=== PATIENT | male | born 1985 | race Caucasian/White ===

== ENCOUNTER 2016-11-29 08:37 | Emergency (ER) | payer BC ==
[2016-11-29 08:46] VITALS: BP 153/99; PULSE 111; TEMP 98.4; BMI 31.6
[2016-11-29] MEDS ORDERED: ALBUTEROL SO4 2.5/IPRATROPIUM 0.5 INH SOL 3 ML VIAL.NEB. NEB ONE (09:06)
[2016-11-29] MEDS ORDERED: ALBUTEROL SO4 0.083% IH SOL 2.5 MG/3 ML VIAL.NEB. NEB ONE (09:07)
[2016-11-29] MEDS ORDERED: ONDANSETRON 8 MG TABLET (FP) PO ONE (09:37)
[2016-11-29] MEDS ORDERED: ONDANSETRON 4 MG TABLET PO ONE (09:42)
[2016-11-29] MEDS ORDERED: KETOROLAC TROMETHAMINE 30 MG/1 ML VIAL IM ONE (10:03)
[2016-11-29] MEDS ORDERED: KETOROLAC TROMETHAMINE 30 MG/1 ML VIAL ONE (10:09)
--- NOTE | 2016-11-29 11:04 | PDOC ---
History of Present Illness - General Chief Complaint: Cold Symptoms Stated Complaint: CHEST PAIN/cough Time Seen by Provider: 11/29/16 08:56 History Source: Patient Exam Limitations: No Limitations - History of Present Illness Initial Comments: 11/29/16 10:59 CC chest pain post coughing x 2 days; started on augmentin for ilness by local MD Timing/Duration: reports: constant Severity: reports: moderate Possible Cause: Yes: illness exposure. No: no prior episodes Modifying Factors: worse with: albuterol inhaler, albuterol nebulizer Associated Symptoms: reports: fever/chills. denies: chest pain/soreness, headache Past History - Past Medical History Allergies/Adverse Reactions: Allergies Allergy/AdvReac Type Severity Reaction Status Date / Time latex Allergy Swelling Verified 11/29/16 08:42 Home Medications: Ambulatory Orders Amlodipine Besylate 10 mg PO DAILY 06/16/16 Metoprolol Succinate [Toprol XL -] 25 mg PO BID 06/16/16 Losartan 50Mg/Hctz 12.5MG [Hyzaar -] 1 tab PO DAILY 09/03/16 mg Trisilicate/Alh/Nahco3/Aa [Gaviscon 80-14.2 mg Tab Chew] 1 each PO DAILY 05/29 Anemia: No Asthma: Yes Cancer: No Cardiac Disorders: Yes (VSD) CVA: No COPD: No CHF: No Dementia: No Diabetes: No GI Disorders: Yes (HIRSCHSPRUNG'S DISEASE) Disorders: No HTN: Yes Liver Disease: No Psychiatric Problems: Yes (depression) Seizures: No Thyroid Disease: No - Surgical History Abdominal Surgery: Yes (COLOSTOMY WITH REVERSAL AT AGE 7) Appendectomy: No Cardiac Surgery: Yes (CARDIAC CATH,no stent) Cholecystectomy: No Lung Surgery: No Neurologic Surgery: No Orthopedic Surgery: No - Immunization History Td Vaccination: Yes TDAP Vaccination: No Immunization Up to Date: Yes - Psycho/Social/Smoking Cessation Hx Anxiety: No Suicidal Ideation: No Smoking Status: No Smoking History: Never smoked Have you smoked in the past 12 months: No Number of Cigarettes Smoked Daily: 0 Information on smoking cessation initiated: No Hx Alcohol Use: No Drug/Substance Use Hx: No Substance Use Type: None Hx Substance Use Treatment: No Review of Systems - Review of Systems Constitutional: Yes: Chills, Fever, Malaise HEENTM: Yes: Nose Pain, Nose Congestion Respiratory: Yes: Symptoms reported, Cough Cardiac (ROS): Yes: Symptoms Reported, Chest Pain ABD/GI: Yes: Symptoms Reported, Nausea. No: Vomiting : Yes: Symptoms Reported *Physical Exam - Vital Signs Last Vital Signs Temp Pulse Resp BP Pulse Ox 98.4 F 111 H 18 153/99 100 11/29/16 08:42 11/29/16 08:42 11/29/16 08:42 11/29/16 08:42 11/29/16 08:42 - Physical Exam General Appearance: Yes: Appropriately Dressed. No: Apparent Distress HEENT: positive: Tonsillar Erythema, Nasal Congestion. negative: TMs Normal, Pharynx Normal Neck: negative: Tender, Rigid, Supple Respiratory/Chest: positive: Lungs Clear, Normal Breath Sounds, Respiratory Distress, Accessory Muscle Use Cardiovascular: positive: Regular Rhythm, Regular Rate. negative: Murmur ED Treatment Course - RADIOLOGY Radiology Studies Ordered: Category Date Time Status CHEST PA & LAT [RAD] Stat Radiology 11/29/16 09:07 Completed - Medications Given in the ED: ED Medications Discontinued Medications Generic Name Dose Route Start Last Admin Trade Name Freq PRN Reason Stop Dose Admin Albuterol/Ipratropium 1 amp 11/29/16 09:06 11/29/16 09:09 Duoneb - NEB 11/29/16 09:07 1 amp ONCE ONE Administration Ketorolac Tromethamine 30 mg 11/29/16 10:03 11/29/16 10:10 Toradol Injection - IM 11/29/16 10:04 30 mg ONCE ONE Administration Ondansetron HCl 8 mg 11/29/16 09:37 11/29/16 09:56 Zofran - PO 11/29/16 09:38 8 mg ONCE ONE Administration Medical Decision Making - Medical Decision Making 11/29/16 11:01 EKG reviwed by ED attending; chest xray negative; feeling better post toradol and zofran; nausea gone *DC/Admit/Observation/Transfer Diagnosis at time of Disposition: Bronchitis - Discharge Dispostion Disposition: HOME Condition at time of disposition: Stable Admit: No - Patient Instructions Additional Instructions: please see dr garcia this week; rest at home; lots of fluids; continue augmentin - Post Discharge Activity Work/School Note: Back to Work
--- NOTE | 2016-12-06 12:59 | EKG ---
Test Reason : Blood Pressure : / mmHG Vent. Rate : 093 BPM Atrial Rate : 093 BPM P-R Int : 138 ms QRS Dur : 102 ms QT Int : 340 ms P-R-T Axes : 042 020 067 degrees QTc Int : 422 ms NORMAL SINUS RHYTHM NONSPECIFIC T WAVE ABNORMALITY ABNORMAL ECG WHEN COMPARED WITH ECG OF 20-OCT-2016 11:08, NO SIGNIFICANT CHANGE WAS FOUND Confirmed by JAUN LYNN MD ([id number]) on 12/06/2016 12:58:22 PM Referred By: Confirmed By:JAUN LYNN MD
== END 2016-11-29 11:09 | disposition home or self-care (01) ==
LOC: JERFT 08:37
PROC: 3E0F7GC Introduction of Other Therapeutic Substance into Respiratory Tract, Via Natural or Artificial Opening (ICD-10-PCS; principal; 2016-11-29)
PROC: 3E0233Z Introduction of Anti-inflammatory into Muscle, Percutaneous Approach (ICD-10-PCS; 2016-11-29)
DX: J40 Bronchitis, not specified as acute or chronic (principal); J45.909 Unspecified asthma, uncomplicated; Z98.61 Coronary angioplasty status
CPT/HCPCS: 71020-TC; 93005; 93010; 99281-25

== ENCOUNTER 2017-02-16 13:32 | Emergency (ER) | payer BC ==
[2017-02-16 13:43] VITALS: BMI 31.6
[2017-02-16] MEDS ORDERED: ACETAMINOPHEN 325 MG TABLET (FP) PO ONE (17:16)
--- NOTE | 2017-02-16 17:22 | PDOC ---
History of Present Illness - General Chief Complaint: Injury Stated Complaint: HEADACHE Time Seen by Provider: 02/16/17 17:11 History Source: Patient Exam Limitations: No Limitations - History of Present Illness Initial Comments: 02/16/17 17:20 31 yr male states he was at work today and a patient opened the door and hit the side of his head left side. no LOC this occurred at 12 om at work. Pt has a history of HTN Occurred: reports: this afternoon Severity: reports: mild Pain Location: reports: face (left side head ) Past History - Past Medical History Allergies/Adverse Reactions: Allergies Allergy/AdvReac Type Severity Reaction Status Date / Time latex Allergy Swelling Verified 02/16/17 13:43 Home Medications: Ambulatory Orders Amlodipine Besylate 10 mg PO DAILY 06/16/16 Metoprolol Succinate [Toprol XL -] 50 mg PO BID 06/16/16 Losartan 50Mg/Hctz 12.5MG [Hyzaar -] 1 tab PO DAILY 09/03/16 Ranitidine HCl 0 mg PO DAILY 02/16/17 Anemia: No Asthma: Yes Cancer: No Cardiac Disorders: Yes (VSD) CVA: No COPD: No CHF: No Dementia: No Diabetes: No GI Disorders: Yes (HIRSCHSPRUNG'S DISEASE) Disorders: No HTN: Yes Liver Disease: No Psychiatric Problems: Yes (depression) Seizures: No Thyroid Disease: No - Surgical History Abdominal Surgery: Yes (COLOSTOMY WITH REVERSAL AT AGE 7) Appendectomy: No Cardiac Surgery: Yes (CARDIAC CATH,no stent) Cholecystectomy: No Lung Surgery: No Neurologic Surgery: No Orthopedic Surgery: No - Immunization History Td Vaccination: Yes TDAP Vaccination: No Immunization Up to Date: Yes - Psycho/Social/Smoking Cessation Hx Anxiety: No Suicidal Ideation: No Smoking Status: No Smoking History: Never smoked Have you smoked in the past 12 months: No Number of Cigarettes Smoked Daily: 0 Hx Alcohol Use: No Drug/Substance Use Hx: No Substance Use Type: None Hx Substance Use Treatment: No Trauma Specific PMHX - Complaint Specific PMHX Arthritis: No Back Injury: No Neck Injury: No Hx Sacro Iliac Joint Dysfunction: No Review of Systems - Review of Systems Able to Perform ROS?: Yes Is the patient limited German proficient: No Constitutional: No: Symptoms Reported HEENTM: No: Symptoms Reported Respiratory: No: Symptoms reported Cardiac (ROS): No: Symptoms Reported ABD/GI: No: Symptoms Reported : No: Symptoms Reported Musculoskeletal: No: Symptoms Reported Integumentary: No: Symptoms Reported Neurological: Yes: Symptoms reported, See HPI, Headache *Physical Exam - Vital Signs Last Vital Signs Temp Pulse Resp BP Pulse Ox 98.3 F 75 20 142/92 98 02/16/17 13:40 02/16/17 13:40 02/16/17 13:40 02/16/17 13:40 02/16/17 13:40 - Physical Exam General Appearance: Yes: Nourished, Appropriately Dressed HEENT: positive: EOMI, YOLIE, TMs Normal, Pharynx Normal Neck: positive: Supple. negative: Tender, Tender lateral, Tender midline Respiratory/Chest: positive: Lungs Clear, Normal Breath Sounds, Labored Respiration. negative: Chest Tender Cardiovascular: positive: Regular Rhythm, Regular Rate Gastrointestinal/Abdominal: positive: Normal Bowel Sounds, Soft Musculoskeletal: positive: Normal Inspection. negative: Vertebral Tenderness Extremity: positive: Normal Capillary Refill, Normal Inspection, Normal Range of Motion Integumentary: positive: Normal Color, Dry, Warm, Other (tender to touch right parietal/temporal area no swelling or echymosis, no bony crepitus or stepoff). negative: Swelling, Ecchymosis, Bruising Neurologic: positive: Fully Oriented, Alert, Normal Mood/Affect, Normal Response , Motor Strength 5/5 ED Treatment Course - RADIOLOGY Radiology Studies Ordered: Category Date Time Status HEAD CT WITHOUT CONTRAST [CT] Stat CT Scan 02/16/17 17:12 Ordered Medical Decision Making - Medical Decision Making 02/16/17 17:22 cc: hit in head with a door frame opened and hit the left side of his head no LOC c/o headache dizzyness will give tylenol 650mg now and head ct 02/16/17 17:45 02/16/17 18:15 negative headct will dc home. pt stable on discharge. 02/16/17 18:16 *DC/Admit/Observation/Transfer Diagnosis at time of Disposition: Injury of head Qualifiers: Encounter type: initial encounter Qualified Code(s): S09.90XA - Unspecified injury of head, initial encounter - Discharge Dispostion Disposition: HOME Condition at time of disposition: Good - Patient Instructions Printed Discharge Instructions: DI for Closed Head Injury Additional Instructions: drink pleanty of water to stay hydrated take tylenol 650mg every 4hrs for headache as needed avoid any alcohol for the next 2 days follow with your doctor in 1-2 days for follow up visit or return to ER if you have any worsening symptoms
[2017-02-16] MEDS ORDERED: ACETAMINOPHEN 325 MG TABLET (FP) ONE (17:39)
[2017-02-16 18:47] VITALS: BP 130/88; PULSE 66; TEMP 98.6
== END 2017-02-16 18:30 | disposition home or self-care (01) ==
LOC: JER 13:32
DX: S09.90XA Unspecified injury of head, initial encounter (principal); W20.8XXA Other cause of strike by thrown, projected or falling object, initial encounter; Y93.89 Activity, other specified; Y92.9 Unspecified place or not applicable; Y99.0 Civilian activity done for income or pay; J45.909 Unspecified asthma, uncomplicated; Q43.1 Hirschsprung's disease; I10 Essential (primary) hypertension; F32.9 Major depressive disorder, single episode, unspecified
CPT/HCPCS: 70450-TC; 99281-25

== ENCOUNTER 2017-03-28 09:51 | Emergency (ER) | payer OTHER, BC ==
[2017-03-28 09:54] VITALS: BP 140/90; PULSE 76; TEMP 97.6; BMI 31.6
[2017-03-28] MEDS ORDERED: ACETAMINOPHEN 325 MG TABLET (FP) PO ONE (10:17)
[2017-03-28] MEDS ORDERED: ACETAMINOPHEN 325 MG TABLET (FP) ONE (10:22)
--- NOTE | 2017-03-28 10:38 | PDOC ---
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 Pt did not pass out states "I saw stars" has ringing in the right ear and headache. Pt states he has history of a concussion. No vomiting or nausea . Timing/Duration: reports: 1-3 hours, constant Severity: Yes: mild Associated Symptoms: reports: ringing in ears Past History - Past Medical History Allergies/Adverse Reactions: Allergies Allergy/AdvReac Type Severity Reaction Status Date / Time latex Allergy Swelling Verified 03/28/17 09:54 Home Medications: Ambulatory Orders Amlodipine Besylate 10 mg PO DAILY 06/16/16 Metoprolol Succinate [Toprol XL -] 50 mg PO BID 06/16/16 Losartan 50Mg/Hctz 12.5MG [Hyzaar -] 1 tab PO DAILY 09/03/16 Ranitidine HCl 0 mg PO DAILY 02/16/17 Anemia: No Asthma: Yes Cancer: No Cardiac Disorders: Yes (VSD) CVA: No COPD: No CHF: No Dementia: No Diabetes: No GI Disorders: Yes (HIRSCHSPRUNG'S DISEASE) Disorders: No HTN: Yes Liver Disease: No Psychiatric Problems: Yes (depression) Seizures: No Thyroid Disease: No - Surgical History Abdominal Surgery: Yes (COLOSTOMY WITH REVERSAL AT AGE 7) Appendectomy: No Cardiac Surgery: Yes (CARDIAC CATH,no stent) Cholecystectomy: No Lung Surgery: No Neurologic Surgery: No Orthopedic Surgery: No - Immunization History Td Vaccination: Yes TDAP Vaccination: No Immunization Up to Date: Yes - Psycho/Social/Smoking Cessation Hx Anxiety: No Suicidal Ideation: No Smoking Status: No Smoking History: Never smoked Have you smoked in the past 12 months: No Number of Cigarettes Smoked Daily: 0 Information on smoking cessation initiated: No Hx Alcohol Use: No Drug/Substance Use Hx: No Substance Use Type: None Hx Substance Use Treatment: No Neuro Specific PMHX - Complaint Specific PMHX Glaucoma: No Herniated Disk: No Laminectomy: No Migraine: No Multiple Sclerosis: No Neuropathy: No TIA: No Other Neuro History: concussion Review of Systems - Review of Systems Able to Perform ROS?: Yes Is the patient limited Yakut proficient: No Constitutional: No: Symptoms Reported HEENTM: No: Symptoms Reported Respiratory: No: Symptoms reported Cardiac (ROS): No: Symptoms Reported ABD/GI: No: Symptoms Reported : No: Symptoms Reported Musculoskeletal: No: Symptoms Reported Integumentary: No: Symptoms Reported Neurological: Yes: Symptoms reported, See HPI *Physical Exam - Vital Signs Last Vital Signs Temp Pulse Resp BP Pulse Ox 97.6 F 76 17 140/90 99 03/28/17 09:52 03/28/17 09:52 03/28/17 09:52 03/28/17 09:52 03/28/17 09:52 - Physical Exam General Appearance: Yes: Nourished, Appropriately Dressed HEENT: positive: EOMI, YOLIE, Normal ENT Inspection, TMs Normal, Pharynx Normal Neck: positive: Supple. negative: Tender, Tender lateral, Tender midline Respiratory/Chest: positive: Lungs Clear, Normal Breath Sounds Cardiovascular: positive: Regular Rhythm, Regular Rate Musculoskeletal: positive: Normal Inspection Extremity: positive: Normal Capillary Refill, Normal Inspection, Normal Range of Motion Integumentary: positive: Normal Color, Dry, Warm Neurologic: positive: Fully Oriented, Alert, Normal Mood/Affect, Normal Response , Motor Strength / ED Treatment Course - RADIOLOGY Radiology Studies Ordered: Category Date Time Status HEAD CT WITHOUT CONTRAST [CT] Stat CT Scan 03/28/17 10:18 Taken - Medications Given in the ED: ED Medications Discontinued Medications Generic Name Dose Route Start Last Admin Trade Name Stevenq PRN Reason Stop Dose Admin Acetaminophen 650 mg 03/28/17 10:17 03/28/17 10:23 Tylenol - PO 03/28/17 10:18 650 mg ONCE ONE Administration Medical Decision Making - Medical Decision Making 03/28/17 10:40 cc: headache after minor head trauma no LOC no dizzyness c/o headache and ringing in ear will give tylenol and get head ct *DC/Admit/Observation/Transfer Diagnosis at time of Disposition: Headache, post-traumatic, acute Qualifiers: Intractability: intractable Qualified Code(s): G44.311 - Acute post-traumatic headache, intractable - Discharge Dispostion Disposition: HOME Condition at time of disposition: Good - Referrals Referrals: Norbert Espinal MD [Primary Care Provider] - - Patient Instructions Additional Instructions: drink pleanty of water to stay hydrated take tylenol 650mg every 4-6hrs for headache or pain as needed no texting, reading or watching TV if headaches continue follow with the neurologist Dr. Brady for follow up if headaches continue or worsen - Post Discharge Activity Work/School Note: Back to Work
== END 2017-03-28 11:01 | disposition home or self-care (01) ==
LOC: JERFT 09:51
DX: G44.311 Acute post-traumatic headache, intractable (principal); W21.09XA Struck by other hit or thrown ball, initial encounter; Y93.89 Activity, other specified; Y92.218 Other school as the place of occurrence of the external cause; Y99.0 Civilian activity done for income or pay; I25.10 Atherosclerotic heart disease of native coronary artery without angina pectoris; Z98.61 Coronary angioplasty status; I10 Essential (primary) hypertension; F32.9 Major depressive disorder, single episode, unspecified; Q43.1 Hirschsprung's disease
CPT/HCPCS: 70450-TC; 99281-25

== ENCOUNTER 2017-06-01 12:05 | Emergency (ER) | payer BC, OTHER ==
[2017-06-01 12:09] VITALS: BP 166/99; PULSE 116; TEMP 98.3; BMI 33.3
[2017-06-01] MEDS ORDERED: LIDOCAINE HCL 2% JELLY (5 ML/TUBE) ONE (12:31)
[2017-06-01] MEDS ORDERED: SODIUM CHLORIDE 1,000 ML IV ONE ×2 (13:10→14:55)
--- NOTE | 2017-06-01 13:10 | PDOC ---
History of Present Illness - General Chief Complaint: Urinary Problem Stated Complaint: URINE RETENTION Time Seen by Provider: 06/01/17 12:51 History Source: Patient Exam Limitations: No Limitations - History of Present Illness Initial Comments: 06/01/17 13:10 06/01/17 13:11 31yM hx of htn recently diagnosed UTI by PMD presents with urinary retention. Pt states he was dx by dr teddy perez on fri. was started on cipro. since then he has noticed a weaker and weaker urine stream, last time he urinated was 5am. he hasnt urinated since then and is concerned he may be obstructed. 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 Past History - Past Medical History Allergies/Adverse Reactions: Allergies Allergy/AdvReac Type Severity Reaction Status Date / Time latex Allergy Swelling Verified 06/01/17 12:09 Home Medications: Ambulatory Orders Amlodipine Besylate 10 mg PO DAILY 06/16/16 Metoprolol Succinate [Toprol XL -] 50 mg PO BID 06/16/16 Losartan 50Mg/Hctz 12.5MG [Hyzaar -] 1 tab PO DAILY 09/03/16 Ranitidine HCl 0 mg PO DAILY 02/16/17 Anemia: No Asthma: Yes Cancer: No Cardiac Disorders: Yes (VSD) CVA: No COPD: No CHF: No Dementia: No Diabetes: No GI Disorders: Yes (HIRSCHSPRUNG'S DISEASE) Disorders: No HTN: Yes Liver Disease: No Psychiatric Problems: Yes (depression) Seizures: No Thyroid Disease: No - Surgical History Abdominal Surgery: Yes (COLOSTOMY WITH REVERSAL AT AGE 7) Appendectomy: No Cardiac Surgery: Yes (CARDIAC CATH,no stent) Cholecystectomy: No Lung Surgery: No Neurologic Surgery: No Orthopedic Surgery: No - Immunization History Td Vaccination: Yes TDAP Vaccination: No Immunization Up to Date: Yes - Psycho/Social/Smoking Cessation Hx Anxiety: No Suicidal Ideation: No Smoking Status: No Smoking History: Never smoked Have you smoked in the past 12 months: No Number of Cigarettes Smoked Daily: 0 Hx Alcohol Use: No Drug/Substance Use Hx: No Substance Use Type: None Hx Substance Use Treatment: No Review of Systems - Review of Systems Able to Perform ROS?: Yes Comments:: 06/01/17 13:13 Constitutional - no reported Fever, Chills, HEENT: no reported vision changes, sore throat Respiratory: no reported cough, sob, hemoptysis Cardiac: no reported chest pain, palpitations, light headedness, leg swelling Abd/GI: no reported abd pain, nausea, vomiting, blood per rectum, melena, diarrhea : +urinary retension no reported dysuria, frequency, discharge Musculskelatal - no reported back pain, joint swelling skin - no reported bruising, erythema, rash neurological: no reported headache, numbness, focal weakness, tingling, ataxia, hematologic: no reported anemia, easy bruising, easy bleeding *Physical Exam - Vital Signs Last Vital Signs Temp Pulse Resp BP Pulse Ox 98.3 F 116 H 20 166/99 99 06/01/17 12:05 06/01/17 12:05 06/01/17 12:05 06/01/17 12:05 06/01/17 12:05 - Physical Exam Comments: 06/01/17 13:14 GENERAL: The patient is awake, alert, and fully oriented, Nontoxic - in no acute distress. HEAD: Normocephalic, atraumatic. EYES: extraocular movements intact, sclera anicteric, conjunctiva clear. ENT: Normal voice, Moist mucous membranes. NECK: Normal range of motion, supple LUNGS: Breath sounds equal, clear to auscultation bilaterally. No wheezes, no rhonchi, no rales. HEART: Regular rate and rhythm, normal S1 and S2 without murmur, rub or gallop. ABDOMEN: Soft, nontender, normoactive bowel sounds. No guarding, no rebound. No CVA tenderness : uncircumcised penis, nondistended bladder, no suprapubic tenderness EXTREMITIES: Normal range of motion, no edema. No clubbing or cyanosis. No cords, erythema, or tenderness. NEUROLOGICAL: No facial assymetry, Normal speech, PSYCH: Normal mood, normal affect. SKIN: Warm, Dry, normal turgor, ED Treatment Course - LABORATORY CBC & Chemistry Diagram: 06/01/17 13:27 06/01/17 13:27 Medical Decision Making - Medical Decision Making 06/01/17 14:55 31y M recent UTI on cipro presents with retention pt denies abd pain, or urgency klein placed with output of approx 300cc of urine states 06/01/17 17:16 pt urinated will dc with pmd fu return precutions were discussed I discussed the physical exam findings, ancillary test results and final diagnoses with the patient. I answered all of the patient's questions. The patient was satisfied with the care received and felt comfortable with the discharge plan and treatment plan. The patient will call their primary care physician within 24 hours to arrange follow-up and will return to the Emergency Department with any new, persistent or worsening symptoms. *DC/Admit/Observation/Transfer Diagnosis at time of Disposition: Urinary retention - Discharge Dispostion Disposition: HOME Condition at time of disposition: Improved Admit: No - Referrals Referrals: Norbert Espinal MD [Primary Care Provider] - Mustapha Blanton MD [Staff Physician] - - Patient Instructions Printed Discharge Instructions: DI for Urinary Retention in Men Additional Instructions: Return to the emergency department immediately with ANY new, persistent or worsening symptoms. You MUST call and follow up with Teddy Brink for further evaluation of your symptoms. If your retention is persistent return to [facility] or follow up with urology. Results were discussed with you. Please make sure your doctor reviews the results of your emergency evaluation. Print Language: PORTUGUESE
[2017-06-01] MEDS ORDERED: LIDOCAINE HCL 2% JELLY 10 ML CARTRIDGE ONE (13:45)
[2017-06-01 13:47] LABS: BASOPHIL 0.4 % (0-2.0); EOSINOPHIL 0.2 % (0-4.5); MCH 26.8 pg (25.7-33.7); MCHC 33.8 g/dl (32.0-35.9); MEAN CELL VOLUME 79.1 fl (80-96); NEUTROPHILS 85.1 % (42.8-82.8); PLATELET COUNT 189 K/MM3 (134-434); RDW 13.5 % (11.9-15.9); WHITE BLOOD COUNT 9.2 K/mm3 (4.0-10.0)
[2017-06-01 14:16] LABS: ALBUMIN 4.4 g/dl (3.4-5.0); ANION GAP 9 (8-16); CALCIUM 9.2 mg/dL (8.5-10.1); CO2 28 mmol/L (21-32); CREATININE 0.9 mg/dL (0.7-1.3); GLUCOSE,RANDOM 124 mg/dL (74-106); SGOT/AST 20 U/L (15-37); SGPT/ALT 12 U/L (12-78)
[2017-06-01 14:18] LABS: ALK PHOS 71 U/L (45-117); BILIRUBIN,TOTAL 0.7 mg/dL (0.2-1.0)
[2017-06-01 14:48] LABS: URINE APPEARANCE CLEAR; URINE BILIRUBIN NEGATIVE (NEGATIVE); URINE BLOOD NEGATIVE (NEGATIVE); URINE COLOR LTYELLOW; URINE GLUCOSE (UA) NEGATIVE (NEGATIVE); URINE KETONE NEGATIVE (NEGATIVE); URINE LEUK ESTERASE NEGATIVE (NEGATIVE); URINE NITRITE NEGATIVE (NEGATIVE); URINE PROTEIN NEGATIVE (NEGATIVE); URINE UROBILINOGEN NEGATIVE mg/dL (0.2-1.0)
== END 2017-06-01 17:54 | disposition home or self-care (01) ==
LOC: JER 12:05
PROC: 3E0337Z Introduction of Electrolytic and Water Balance Substance into Peripheral Vein, Percutaneous Approach (ICD-10-PCS; principal; 2017-06-01)
PROC: 0T9B70Z Drainage of Bladder with Drainage Device, Via Natural or Artificial Opening (ICD-10-PCS; 2017-06-01)
DX: R33.9 Retention of urine, unspecified (principal); Q43.1 Hirschsprung's disease; Q21.0 Ventricular septal defect; J45.909 Unspecified asthma, uncomplicated; I10 Essential (primary) hypertension; F32.9 Major depressive disorder, single episode, unspecified
CPT/HCPCS: 36415; 80053; 81003; 85025; 87086; 99281-25

== ENCOUNTER 2017-10-25 16:47 | Inpatient (IN) | payer BC ==
--- NOTE | 2017-10-25 17:05 | PDOC ---
Rapid Medical Evaluation Time Seen by Provider: 10/25/17 17:03 Medical Evaluation: Allergies Allergy/AdvReac Type Severity Reaction Status Date / Time latex Allergy Swelling Verified 10/25/17 17:03 10/25/17 17:03 The patient presents with a chief complaint of: hx asthma, seen on tuesday and gave prednisone, had bronchitis 2 weeks ago,, no fever I have performed a brief in-person evaluation of this patient. Pertinent physical exam findings: exp wheeze ro rt lobe I have ordered the following: duoneb, cxr The patient will proceed to the ED for further evaluation. Discharge Disposition - Diagnosis Cough - Referrals - Patient Instructions - Post Discharge Activity
[2017-10-25 17:06] VITALS: BMI 32.4
[2017-10-25] MEDS: ALBUTEROL SO4 2.5/IPRATROPIUM 0.5 INH SOL 3 ML VIAL.NEB. NEB ONE ×2 (17:28→18:26)
[2017-10-25] MEDS ORDERED: ALBUTEROL SO4 0.083% IH SOL 2.5 MG/3 ML VIAL.NEB. NEB PRN (19:09)
--- NOTE | 2017-10-25 19:10 | PDOC ---
History of Present Illness - General History Source: Patient Exam Limitations: No Limitations - History of Present Illness Initial Comments: 10/25/17 19:20 The patient is a 32 year old male with significant history of hypertension and asthma sent to the ED by his PCP for over 2 weeks of shortness of breath, chest tightness and productive cough. Cough is constant. Shortness of breath is not associated with exertion or lying flat. The patient was treated by his PCP with antibiotics, prednisone, and Symbicort, and Pro Air without resolution of his symptoms. He was sent to the ED for hospital admission. He has history of hospitalization for pneumonia in the past. <Leigha Yan - Last Filed: 10/25/17 22:11> <Chen Benton - Last Filed: 10/26/17 00:50> - General Chief Complaint: Respiratory Stated Complaint: PCP SENT/WHEEZING Time Seen by Provider: 10/25/17 17:03 Past History <Leigha Yan - Last Filed: 10/25/17 22:11> - Past Medical History Anemia: No Asthma: Yes Cancer: No Cardiac Disorders: Yes (VSD) CVA: No COPD: No CHF: No Dementia: No Diabetes: No GI Disorders: Yes (HIRSCHSPRUNG'S DISEASE) Disorders: No HTN: Yes Liver Disease: No Psychiatric Problems: Yes (depression) Seizures: No Thyroid Disease: No - Surgical History Abdominal Surgery: Yes (COLOSTOMY WITH REVERSAL AT AGE 7) Appendectomy: No Cardiac Surgery: Yes (CARDIAC CATH,no stent) Cholecystectomy: No Lung Surgery: No Neurologic Surgery: No Orthopedic Surgery: No - Immunization History Td Vaccination: Yes TDAP Vaccination: No Immunization Up to Date: Yes - Suicide/Smoking/Psychosocial Hx Smoking Status: No Smoking History: Never smoked Have you smoked in the past 12 months: No Number of Cigarettes Smoked Daily: 0 Hx Alcohol Use: No Drug/Substance Use Hx: No Substance Use Type: None Hx Substance Use Treatment: No <Chen Benton - Last Filed: 10/26/17 00:50> - Past Medical History Allergies/Adverse Reactions: Allergies Allergy/AdvReac Type Severity Reaction Status Date / Time latex Allergy Swelling Verified 10/25/17 17:03 Home Medications: Ambulatory Orders Amlodipine Besylate 10 mg PO DAILY 06/16/16 Metoprolol Succinate [Toprol XL -] 50 mg PO BID 06/16/16 Losartan 50Mg/Hctz 12.5MG [Hyzaar -] 1 tab PO DAILY 09/03/16 Pantoprazole Sodium 40 mg PO DAILY 10/25/17 Review of Systems - Review of Systems Able to Perform ROS?: Yes Comments:: 10/25/17 19:23 GENERAL/CONSTITUTIONAL: No fever or chills. No weakness. HEAD, EYES, EARS, NOSE AND THROAT: No change in vision. No ear pain or discharge. No sore throat. CARDIOVASCULAR: No chest pain or palpitations. RESPIRATORY: +dyspnea, productive cough, chest tightness. No hemoptysis. GASTROINTESTINAL: No nausea, vomiting, diarrhea or constipation. GENITOURINARY: No dysuria, frequency, or change in urination. MUSCULOSKELETAL: No joint or muscle swelling or pain. No neck or back pain. SKIN: No rash NEUROLOGIC: No headache, vertigo, loss of consciousness, or change in strength/ sensation. ENDOCRINE: No increased thirst. No abnormal weight change. HEMATOLOGIC/LYMPHATIC: No anemia, easy bleeding, or history of blood clots. ALLERGIC/IMMUNOLOGIC: No hives or skin allergy. <Leigha Yan - Last Filed: 10/25/17 22:11> *Physical Exam - Vital Signs Last Vital Signs Temp Pulse Resp BP Pulse Ox 99 F 82 17 153/113 100 10/25/17 17:03 10/25/17 18:10 10/25/17 17:03 10/25/17 17:03 10/25/17 18:10 - Physical Exam Comments: 10/25/17 20:14 GENERAL: Awake, alert, and fully oriented, in no acute distress HEAD: No signs of trauma EYES: PERRLA, EOMI, sclera anicteric, conjunctiva clear ENT: Auricles normal inspection, nares patent. Moist mucosa NECK: Normal ROM, supple, no JVD, or masses LUNGS: Bilateral wheezing and rhonchi at the bilateral lung bases. HEART: Regular rate and rhythm, normal S1 and S2, no murmurs, rubs or gallops ABDOMEN: Soft, nontender, normoactive bowel sounds. No guarding, no rebound. No masses EXTREMITIES: Normal range of motion, no edema. No clubbing or cyanosis. No cords, erythema, or tenderness NEUROLOGICAL: Alert and oriented x 3. Moves all extremities. Face is symmetric. SKIN: Warm, Dry, normal turgor, no rashes or lesions noted. <Legiha Yan - Last Filed: 10/25/17 22:11> - Vital Signs Last Vital Signs Temp Pulse Resp BP Pulse Ox 99 F 82 17 153/113 100 10/25/17 17:03 10/25/17 18:10 10/25/17 17:03 10/25/17 17:03 10/25/17 18:10 <Chen Benton - Last Filed: 10/26/17 00:50> ED Treatment Course - LABORATORY CBC & Chemistry Diagram: 10/25/17 20:30 10/25/17 20:30 - RADIOLOGY Radiograph Interpretation: 10/25/17 22:11 Chest x-ray, read and reviewed by Dr. Umang Beckford. Impression: Normal chest. - Medications Given in the ED: ED Medications Discontinued Medications Generic Name Dose Route Start Last Admin Trade Name Freq PRN Reason Stop Dose Admin Albuterol/Ipratropium 1 amp 10/25/17 17:05 10/25/17 18:26 Duoneb - NEB 10/25/17 17:06 1 amp ONCE ONE Administration <Leigha Yan - Last Filed: 10/25/17 22:11> - LABORATORY CBC & Chemistry Diagram: 10/25/17 20:30 10/25/17 20:30 - Medications Given in the ED: ED Medications Discontinued Medications Generic Name Dose Route Start Last Admin Trade Name Freq PRN Reason Stop Dose Admin Albuterol/Ipratropium 1 amp 10/25/17 17:05 10/25/17 18:26 Duoneb - NEB 10/25/17 17:06 1 amp ONCE ONE Administration <Chen Benton - Last Filed: 10/26/17 00:50> Medical Decision Making - Medical Decision Making 10/26/17 00:49 This 32-year-old male with history of asthma had recently been placed on an outpatient steroid taper but has persistent wheezing. His PCP, Dr. Norbert rowley was in the emergency department requested that he be admitted to [facility] after failing outpatient treatment. On my exam, he has diffuse scattered wheezing Patient is not hypoxic , but has persistent wheezing imp -asthma exacerbation plan med/surg admit <Chen Benton - Last Filed: 10/26/17 00:50> *DC/Admit/Observation/Transfer - Attestations Scribe Attestion: 10/25/17 19:25 Documentation prepared by Leigha Yan, acting as medical doctor md/medical director for Chen Benton MD. <Leigha Yan - Last Filed: 10/25/17 22:11> - Discharge Dispostion Admit: Yes <Chen Benton - Last Filed: 10/26/17 00:50> Diagnosis at time of Disposition: Asthma exacerbation Qualifiers: Asthma severity: mild Asthma persistence: persistent Qualified Code(s): J45.31 - Mild persistent asthma with (acute) exacerbation
[2017-10-25] MEDS ORDERED: predniSONE 20 MG TABLET (UD) PO ONE (19:11)
[2017-10-25] MEDS ORDERED: ALBUTEROL SO4 2.5/IPRATROPIUM 0.5 INH SOL 3 ML VIAL.NEB. NEB ONE ×2 (19:12→20:36)
--- NOTE | 2017-10-25 19:18 | HP ---
Admitting History and Physical - Admission Chief Complaint: cough, shortness of breath History of Present Illness: 32 yo male, recent bronchitis, treated with antibiotics, prednisone, symbicort inhaler and proair for last 2 weeks, not improving, feels tightness in chest and throat, coughing up a lot of phlegm. Has constant coughing as well. A couple of years ago needed hospitalization for pneumonia. 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 History of Recent Travel: No Home Medications - Allergies Allergies/Adverse Reactions: Allergies Allergy/AdvReac Type Severity Reaction Status Date / Time latex Allergy Swelling Verified 10/25/17 17:03 - Home Medications Home Medications: Ambulatory Orders Amlodipine Besylate 10 mg PO DAILY 06/16/16 Metoprolol Succinate [Toprol XL -] 50 mg PO BID 06/16/16 Losartan 50Mg/Hctz 12.5MG [Hyzaar -] 1 tab PO DAILY 09/03/16 Pantoprazole Sodium 40 mg PO DAILY 10/25/17 Family Disease History - Family Disease History Family Disease History: Other: Mother Review of Systems - Review of Systems Constitutional: reports: Weakness Eyes: reports: No Symptoms HENT: reports: Throat Pain. denies: Difficult Swallowing, Epistaxis Cardiovascular: denies: Chest Pain, Palpitations Respiratory: reports: Cough, SOB Gastrointestinal: denies: Abdominal Pain, Diarrhea, Melena, Nausea, Vomiting Genitourinary: denies: Burning, Discharge, Dysuria Musculoskeletal: denies: Back Pain, Muscle Pain Neurological: denies: Change in LOC Physical Examination Vital Signs: Vital Signs Temperature 99 F 10/25/17 17:03 Pulse Rate 82 10/25/17 18:10 Respiratory Rate 17 10/25/17 17:03 Blood Pressure 153/113 10/25/17 17:03 O2 Sat by Pulse Oximetry (%) 100 10/25/17 18:10 Constitutional: Yes: Well Nourished, Mild Distress (due to coughing) Eyes: Yes: Conjunctiva Clear, EOM Intact, PERRL HENT: Yes: Atraumatic, Normocephalic Neck: Yes: Supple, Trachea Midline Cardiovascular: Yes: Regular Rate and Rhythm, S1, S2. No: Murmur Respiratory: Yes: Rhonchi (bilaterally), Wheezes (bilaterally at bases) Gastrointestinal: Yes: Normal Bowel Sounds, Soft. No: Distention, Tenderness Musculoskeletal: No: Back Pain Edema: No Neurological: Yes: Alert, Oriented Labs: pending Imaging - Results Chest X-ray: Report Reviewed (no acute lung findings) Problem List - Problems (1) Asthmatic bronchitis Assessment/Plan: -failed outpatient treatment -start IV solumedrol, nebs, abx (levaquin), O2 -pulm consult Code(s): J45.909 - UNSPECIFIED ASTHMA, UNCOMPLICATED (2) Hypertension Assessment/Plan: -cont antihypertensives Code(s): I10 - ESSENTIAL (PRIMARY) HYPERTENSION
[2017-10-25] MEDS: ALBUTEROL SO4 0.083% IH SOL 2.5 MG/3 ML VIAL.NEB. NEB SCH (20:16)
[2017-10-25] MEDS ORDERED: predniSONE 20 MG TABLET (UD) ONE (20:35)
[2017-10-25] MEDS ORDERED: LEVOFLOXACIN 500 MG IVPB 500 MG/100 ML BAG IVPB ONE (20:36)
[2017-10-25] MEDS: LEVOFLOXACIN 500 MG IVPB 500 MG/100 ML BAG IVPB SCH (20:55)
[2017-10-25 20:59] LABS: BASO % 0.8 % (0-2.0); EOS % 0.5 % (0-4.5); HEMATOCRIT 38.7 % (35.4-49); LYMPH % 24.6 % (8-40); MCH 27.2 pg (25.7-33.7); MCHC 33.7 g/dl (32.0-35.9); MEAN CELL VOLUME 80.5 fl (80-96); MONO % 6.9 % (3.8-10.2); NEUT % 67.2 % (42.8-82.8); PLATELET COUNT 179 K/MM3 (134-434)
[2017-10-25 21:21] LABS: ALBUMIN 3.9 g/dl (3.4-5.0); ANION GAP 6 (8-16); BILIRUBIN,TOTAL 0.4 mg/dL (0.2-1.0); BLOOD UREA NITROGEN 16 mg/dL (7-18); CALCIUM 8.5 mg/dL (8.5-10.1); CHLORIDE 105 mmol/L (98-107); CO2 27 mmol/L (21-32); CREATININE 0.9 mg/dL (0.7-1.3); GLUCOSE,RANDOM 80 mg/dL (74-106); SGOT/AST 16 U/L (15-37); SGPT/ALT 15 U/L (12-78); SODIUM 138 mmol/L (136-145); TOT PROT 7.5 g/dl (6.4-8.2)
[2017-10-25 21:22] LABS: ALK PHOS 67 U/L (45-117)
[2017-10-25] MEDS: METOPROLOL SUCCINATE 25 MG TAB.SR.24H (FP) PO SCH (22:12)
[2017-10-25] MEDS ORDERED: METOPROLOL SUCCINATE 50 MG TAB.SR.24H (FP) ONE (22:18)
[2017-10-26] MEDS: methylPREDNISolone NA SUCC 125 MG/2 ML VIAL IVPUSH SCH ×3 (01:19→17:16)
[2017-10-26] MEDS ORDERED: LOSARTAN 50MG/HCTZ 12.5MG 1 TAB (FP) PO SCH (10:00)
[2017-10-26] MEDS ORDERED: FLU VACCINE QUAD 60 MCG/0.5 ML (MDV 17-18) IM ONE (10:00)
[2017-10-26] MEDS: PANTOPRAZOLE 40 MG TABLET (FP) PO SCH (10:04)
[2017-10-26] MEDS: HYDROCHLOROTHIAZIDE 12.5 MG CAPSULE (FP) PO SCH (10:04)
[2017-10-26] MEDS: LEVOFLOXACIN 500 MG IVPB 500 MG/100 ML BAG IVPB SCH ×2 (10:04→12:00)
[2017-10-26] MEDS: METOPROLOL SUCCINATE 25 MG TAB.SR.24H (FP) PO SCH ×2 (10:04→21:42)
[2017-10-26] MEDS: amLODIPine BESYLATE 10 MG TABLET (FP) PO SCH (10:04)
[2017-10-26] MEDS: LOSARTAN POTASSIUM 50 MG TABLET (FP) PO SCH (10:04)
[2017-10-26] MEDS: ALBUTEROL SO4 0.083% IH SOL 2.5 MG/3 ML VIAL.NEB. NEB SCH (11:15)
--- NOTE | 2017-10-26 12:28 | PN ---
Progress Note, Physician Chief Complaint: Mr Ibrahim says he still has significant coughing with chest tightness and upper airway spasming. Shortness of breath much improved and currently resolved. No cp or n/v. - Current Medication List Current Medications: Active Medications Albuterol Sulfate (Ventolin 0.083% Nebulizer Soln -) 1 amp NEB Q4H PRN PRN Reason: SHORT OF BREATH/WHEEZING Albuterol/Ipratropium (Duoneb -) 1 amp NEB QIDR ALEJANDRO Amlodipine Besylate (Norvasc -) 10 mg PO DAILY [facility] Last Admin: 10/26/17 10:04 Dose: 10 mg Hydrochlorothiazide (Hctz -) 12.5 mg PO DAILY [facility] Last Admin: 10/26/17 10:04 Dose: 12.5 mg Azithromycin 250 mg/ Dextrose 250 mls @ 250 mls/hr IVPB DAILY [facility] Losartan Potassium (Cozaar -) 50 mg PO DAILY [facility] Last Admin: 10/26/17 10:04 Dose: 50 mg Methylprednisolone Sodium Succinate (Solu-Medrol -) 60 mg IVPUSH Q8H-IV ALEJANDRO Metoprolol Succinate (Toprol Xl -) 50 mg PO BID [facility] Last Admin: 10/26/17 10:04 Dose: 50 mg Pantoprazole Sodium (Protonix -) 40 mg PO DAILY [facility] Last Admin: 10/26/17 10:04 Dose: 40 mg - Objective Vital Signs: Vital Signs Temperature 37.0 C 10/26/17 09:00 Pulse Rate 85 10/26/17 09:00 Respiratory Rate 18 10/26/17 09:00 Blood Pressure 134/80 10/26/17 09:00 O2 Sat by Pulse Oximetry (%) 93 L 10/26/17 09:00 Constitutional: Yes: Well Nourished, No Distress, Calm Cardiovascular: Yes: Regular Rate and Rhythm. No: Gallop, Murmur, Rub Respiratory: Yes: Regular, Rhonchi (diffuse). No: CTA Bilaterally, On Nasal O2 , Rales, Wheezes Gastrointestinal: Yes: Normal Bowel Sounds, Soft. No: Distention, Tenderness Extremities: Yes: WNL Edema: No Labs: CBC, BMP 10/25/17 20:30 10/25/17 20:30 Problem List - Problems (1) Asthma exacerbation Assessment/Plan: -patient with persistent asthma exacerbation, failed outpatient therapy -admitted to hospital -change solumedrul to 60mg q8h -change albuterol to duonebs -pulmonary consult Code(s): J45.901 - UNSPECIFIED ASTHMA WITH (ACUTE) EXACERBATION Qualifiers: Asthma severity: mild Asthma persistence: persistent Qualified Code(s): J45.31 - Mild persistent asthma with (acute) exacerbation (2) Hypertension Assessment/Plan: -controlled -possible elevation secondary to steroids -continue home regimen Code(s): I10 - ESSENTIAL (PRIMARY) HYPERTENSION (3) GERD (gastroesophageal reflux disease) Assessment/Plan: -continue protonix Code(s): K21.9 - GASTRO-ESOPHAGEAL REFLUX DISEASE WITHOUT ESOPHAGITIS
[2017-10-26] MEDS: AZITHROMYCIN IVPB 250 MG in DEXTROSE 5%-WATER - 250 ML IVPB SCH (13:48)
--- NOTE | 2017-10-26 14:02 | EKG ---
Test Reason : Blood Pressure : / mmHG Vent. Rate : 070 BPM Atrial Rate : 070 BPM P-R Int : 158 ms QRS Dur : 102 ms QT Int : 380 ms P-R-T Axes : 023 009 038 degrees QTc Int : 410 ms NORMAL SINUS RHYTHM NORMAL ECG WHEN COMPARED WITH ECG OF 29-NOV-2016 08:44, NONSPECIFIC T WAVE ABNORMALITY NO LONGER EVIDENT IN LATERAL LEADS Confirmed by STEVO OROZCO MD ([id number]) on 10/26/2017 2:02:52 PM Referred By: Confirmed By:STEVO OROZCO MD
--- NOTE | 2017-10-26 16:09 | CON.PULM ---
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: Alzheimer's Cardio/Vascular: Yes: HTN, Other (VSD) Pulmonary: Yes: Asthma Gastrointestinal: Yes: Other (Hirschsprung disease) Musculoskeletal: Yes: Other - Past Surgical History Past Surgical History: Yes: Colostomy - Alcohol/Substance Use Hx Alcohol Use: No History of Substance Use: reports: None - Smoking History Smoking history: Never smoked Have you smoked in the past 12 months: No Aproximately how many cigarettes per day: 0 - Social History ADL: Independent 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 History of Recent Travel: No Home Medications - Allergies Allergies/Adverse Reactions: Allergies Allergy/AdvReac Type Severity Reaction Status Date / Time latex Allergy Swelling Verified 10/25/17 17:03 - Home Medications Home Medications: Ambulatory Orders Amlodipine Besylate 10 mg PO DAILY 06/16/16 Metoprolol Succinate [Toprol XL -] 50 mg PO BID 06/16/16 Losartan 50Mg/Hctz 12.5MG [Hyzaar -] 1 tab PO DAILY 09/03/16 Pantoprazole Sodium 40 mg PO DAILY 10/25/17 Family Disease History - Family Disease History Family Disease History: Other: Mother Review of Systems - Review of Systems Cardiovascular: denies: Chest Pain Respiratory: reports: Cough, SOB, SOB on Exertion, Wheezing. denies: Hemoptysis , Orthopnea Physical Exam Vital Sings: Vital Signs Temperature 98.5 F 10/26/17 14:27 Pulse Rate 84 10/26/17 14:27 Respiratory Rate 22 10/26/17 14:27 Blood Pressure 136/76 10/26/17 14:27 O2 Sat by Pulse Oximetry (%) 93 L 10/26/17 09:00 Constitutional: Yes: Calm Eyes: Yes: EOM Intact HENT: Yes: Normocephalic Neck: Yes: Trachea Midline Cardiovascular: Yes: Regular Rate and Rhythm Respiratory: Yes: Wheezes Gastrointestinal: Yes: Soft, Abdomen, Obese Edema: No Neurological: Yes: WNL ...Motor Strength: WNL Psychiatric: Yes: WNL Labs: CBC, BMP 10/25/17 20:30 10/25/17 20:30 REST REVIEWED Imaging - Results Chest X-ray: Report Reviewed, Image Reviewed Problem List - Problems (1) VSD (ventricular septal defect) Code(s): Q21.0 - VENTRICULAR SEPTAL DEFECT (2) Asthma exacerbation Code(s): J45.901 - UNSPECIFIED ASTHMA WITH (ACUTE) EXACERBATION Qualifiers: Asthma severity: mild Asthma persistence: persistent Qualified Code(s): J45.31 - Mild persistent asthma with (acute) exacerbation Assessment/Plan AE B.ASTHMA VSD FOLLOWED BY CARDIOLOGY(LAST ECHO ONE MONTH AGO) O2/STEROIDS/MICHAEL/LABA/LAMA/ICS SERUM IGE LEVEL DAILY PEAK FLOW HOPE TO CHANGE TO ORAL STEROIDS IN AM Cristian BREEN MD
[2017-10-26] MEDS: ALBUTEROL SO4 2.5/IPRATROPIUM 0.5 INH SOL 3 ML VIAL.NEB. NEB SCH (18:33)
[2017-10-26] MEDS ORDERED: PT OWN MED DRAWER 7, Y5N ONE (20:30)
[2017-10-27] MEDS: methylPREDNISolone NA SUCC 125 MG/2 ML VIAL IVPUSH SCH ×2 (03:10→10:03)
--- NOTE | 2017-10-27 03:59 | HOSP ---
Subjective - Review of Symptoms Events since last encounter: Hospitalist Encounter Notified by the primary RN, that a patient of Dr. Younger is having midsternal CP. Arrived to bedside, patient is alert, awake and oriented, on O2 he reports having CP x 1hr, while at rest and worse when he coughs. 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 RT for neb treatment Cardiac enzyme- negative Will continue to monitor overnight Cardiovascular: Yes: Chest Pain Physical Examination Vital Signs: Vital Signs Temperature 98.5 F 10/26/17 22:00 Pulse Rate 83 10/26/17 22:00 Respiratory Rate 18 10/26/17 22:00 Blood Pressure 134/88 10/26/17 22:00 O2 Sat by Pulse Oximetry (%) 96 10/26/17 21:00 Constitutional: Yes: Well Nourished, Calm, Mild Distress, Obese Cardiovascular: Yes: WNL, Regular Rate and Rhythm, Murmur, S1, S2 Respiratory: Yes: On Nasal O2, Rhonchi, Wheezes Gastrointestinal: Yes: Normal Bowel Sounds, Soft, Abdomen, Obese ...Motor Strength: WNL Psychiatric: Yes: WNL, Alert, Oriented Labs: CBC, BMP 10/25/17 20:30 10/25/17 20:30
[2017-10-27 04:09] LABS: BASO % 0.1 % (0-2.0); HEMATOCRIT 40.7 % (35.4-49); HEMOGLOBIN 13.3 GM/dL (11.7-16.9); LYMPH % 7.7 % (8-40); MCH 26.3 pg (25.7-33.7); MCHC 32.7 g/dl (32.0-35.9); MEAN CELL VOLUME 80.2 fl (80-96); MONO % 5.5 % (3.8-10.2); NEUT % 86.7 % (42.8-82.8); PLATELET COUNT 232 K/MM3 (134-434); RBC 5.07 M/mm3 (4.00-5.60); RDW 13.9 % (11.9-15.9); WHITE BLOOD COUNT 11.8 K/mm3 (4.0-10.0)
[2017-10-27 04:33] LABS: ANION GAP 11 (8-16); BLOOD UREA NITROGEN 19 mg/dL (7-18); CALCIUM 8.9 mg/dL (8.5-10.1); CHLORIDE 100 mmol/L (98-107); CO2 26 mmol/L (21-32); CREATININE 0.9 mg/dL (0.7-1.3); GLUCOSE,RANDOM 122 mg/dL (74-106); MAGNESIUM 2.2 mg/dL (1.8-2.4); PHOSPHOROUS 3.9 mg/dL (2.5-4.9); POTASSIUM 4.1 mmol/L (3.5-5.1); SODIUM 137 mmol/L (136-145)
[2017-10-27] MEDS: ALBUTEROL SO4 2.5/IPRATROPIUM 0.5 INH SOL 3 ML VIAL.NEB. NEB SCH ×5 (06:30→23:29)
[2017-10-27] MEDS: AZITHROMYCIN IVPB 250 MG in DEXTROSE 5%-WATER - 250 ML IVPB SCH (10:03)
[2017-10-27] MEDS: HYDROCHLOROTHIAZIDE 12.5 MG CAPSULE (FP) PO SCH (10:04)
[2017-10-27] MEDS: PANTOPRAZOLE 40 MG TABLET (FP) PO SCH (10:04)
[2017-10-27] MEDS: LOSARTAN POTASSIUM 50 MG TABLET (FP) PO SCH (10:04)
[2017-10-27] MEDS: METOPROLOL SUCCINATE 25 MG TAB.SR.24H (FP) PO SCH ×2 (10:04→21:53)
[2017-10-27] MEDS: amLODIPine BESYLATE 10 MG TABLET (FP) PO SCH (10:04)
--- NOTE | 2017-10-27 11:31 | EKG ---
Test Reason : Blood Pressure : / mmHG Vent. Rate : 065 BPM Atrial Rate : 065 BPM P-R Int : 140 ms QRS Dur : 102 ms QT Int : 396 ms P-R-T Axes : 031 018 039 degrees QTc Int : 411 ms NORMAL SINUS RHYTHM NORMAL ECG WHEN COMPARED WITH ECG OF 25-OCT-2017 19:41, NO SIGNIFICANT CHANGE WAS FOUND Confirmed by GENESIS GREGORY MD ([id number]) on 10/27/2017 11:31:33 AM Referred By: Confirmed By:GENESIS GREGORY MD
--- NOTE | 2017-10-27 13:38 | PN ---
Physical Exam: SUBJECTIVE: Patient seen and examined. Pt reports that his SOB, cough, and chest tightness are the same as yesterday without any improvement. He denies fevers, chills, abdominal pain, n/v/d/c, and dysuria. OBJECTIVE: Vital Signs Period Temp Pulse Resp BP Sys/Villegas Pulse Ox Last 24 Hr 98.0 F-98.9 F 67-94 18-22 130-147/69-88 95-96 GENERAL: young male, awake, alert, sitting up eating lunch, and fully oriented, in no acute distress. HEENT: EOMI NECK: Trachea midline, full range of motion, supple. LUNGS: decreased breath sounds at bases, no wheezing, no rhonchi, no rales HEART: Regular rate and rhythm, S1, S2 without murmur, rub or gallop. ABDOMEN: Soft, nontender, nondistended, normoactive bowel sounds, no guarding, no rebound, no hepatosplenomegaly, no masses. EXTREMITIES: 2+ pulses, warm, well-perfused, no edema. NEUROLOGICAL: Cranial nerves II through XII grossly intact. Normal speech, gait not observed. PSYCH: Normal mood, normal affect. SKIN: Warm, dry, normal turgor, no rashes or lesions noted Laboratory Results - last 24 hr 10/27/17 10/27/17 10/27/17 04:00 04:00 04:00 WBC 11.8 H D RBC 5.07 Hgb 13.3 Hct 40.7 MCV 80.2 MCH 26.3 MCHC 32.7 RDW 13.9 Plt Count 232 D MPV 8.0 Neutrophils % 86.7 H D Lymphocytes % 7.7 L D Monocytes % 5.5 Eosinophils % 0.0 D Basophils % 0.1 Sodium 137 Potassium 4.1 Chloride 100 Carbon Dioxide 26 Anion Gap 11 BUN 19 H Creatinine 0.9 Random Glucose 122 H D Calcium 8.9 Phosphorus 3.9 D Magnesium 2.2 Creatine Kinase 64 Troponin I < 0.02 Active Medications Generic Name Dose Route Start Last Admin Trade Name Freq PRN Reason Stop Dose Admin Albuterol Sulfate 1 amp 10/25/17 19:09 Ventolin 0.083% Nebulizer Soln - NEB Q4H PRN SHORT OF BREATH/WHEEZING Albuterol/Ipratropium 1 amp 10/26/17 18:00 10/27/17 11:15 Duoneb - NEB 1 amp QIDR ALEJANDRO Administration Amlodipine Besylate 10 mg 10/26/17 10:00 10/27/17 10:04 Norvasc - PO 10 mg DAILY ALEJANDRO Administration Hydrochlorothiazide 12.5 mg 10/26/17 10:00 10/27/17 10:04 Hctz - PO 12.5 mg DAILY ALEJANDRO Administration Azithromycin 250 mg/ Dextrose 250 mls @ 250 mls/hr 10/26/17 12:30 10/27/17 10 :03 IVPB 250 mls/hr DAILY ALEJANDRO Administration Losartan Potassium 50 mg 10/26/17 10:00 10/27/17 10:04 Cozaar - PO 50 mg DAILY ALEJANDRO Administration Methylprednisolone Sodium Succinate 60 mg 10/26/17 12:23 10/27/17 10:03 Solu-Medrol - IVPUSH 60 mg Q8H-IV ALEJANDRO Administration Metoprolol Succinate 50 mg 10/25/17 22:00 10/27/17 10:04 Toprol Xl - PO 50 mg BID ALEJANDRO Administration Pantoprazole Sodium 40 mg 10/26/17 10:00 10/27/17 10:04 Protonix - PO 40 mg DAILY ALEJANDRO Administration ASSESSMENT/PLAN: 32M w/ hx of asthma, hirschsprung's disease, and HTN who presented with chest tightness and productive cough after unsuccessful treatment of recent bronchitis. #asthma exacerbation- subjectively non-improving but objectively is improving -duonebs q6h scheduled -can change from solumedrol to prednisone -O2 via NC -ventolin -incentive spirometry -guaifenesin -abx Rest of care per medical team. Plan to be discussed with attending, Dr. Kapadia. -Carmelo Willams MD PGY1 Pulmonology Team Visit type - Emergency Visit Emergency Visit: Yes ED Registration Date: 10/26/17 Care time: The patient presented to the Emergency Department on the above date and was hospitalized for further evaluation of their emergent condition. - New Patient This patient is new to me today: Yes Date on this admission: 10/27/17 - Critical Care Critical Care patient: No
--- NOTE | 2017-10-27 13:43 | PN ---
Progress Note (short form) - Note Progress Note: PULMONARY VSS/AFEBRILE STABLE/SPEAKING ON TELEPHONE ANICTERIC CLEAR S1S2 SYSTOLIC MURMUR RIGHT LOWER STERNAL BORDER BS+ NO EDEMA PEAK FLOW PENDING MEDS/NOTES/IMAGES/LABS REVIEWED AE B.ASTHMA VSD FOLLOWED BY CARDIOLOGY(LAST ECHO ONE MONTH AGO) O2/STEROIDS/MICHAEL/LABA/LAMA/ICS SERUM IGE LEVEL DAILY PEAK FLOW MEDROL CHANGED TO ORAL STEROIDS DISCHARGE PLANNING R Medhat LEWIS Problem List - Problems (1) VSD (ventricular septal defect) Code(s): Q21.0 - VENTRICULAR SEPTAL DEFECT (2) Asthma exacerbation Code(s): J45.901 - UNSPECIFIED ASTHMA WITH (ACUTE) EXACERBATION Qualifiers: Asthma severity: mild Asthma persistence: persistent Qualified Code(s): J45.31 - Mild persistent asthma with (acute) exacerbation
--- NOTE | 2017-10-27 13:50 | PN ---
Progress Note, Physician Chief Complaint: Mr Ibrahim says he still has coughing and shortness of breath. Says he has chest pain with coughing. No n/v. - Current Medication List Current Medications: Active Medications Albuterol Sulfate (Ventolin 0.083% Nebulizer Soln -) 1 amp NEB Q4H PRN PRN Reason: SHORT OF BREATH/WHEEZING Albuterol/Ipratropium (Duoneb -) [address] [facility] Last Admin: 10/27/17 11:15 Dose: 1 amp Amlodipine Besylate (Norvasc -) [address] [facility] Last Admin: 10/27/17 10:04 Dose: 10 mg Hydrochlorothiazide (Hctz -) 12.[address] [facility] Last Admin: 10/27/17 10:04 Dose: 12.5 mg Azithromycin 250 mg/ Dextrose 250 mls @ 250 mls/hr IVPB DAILY [facility] Last Admin: 10/27/17 10:03 Dose: 250 mls/hr Losartan Potassium (Cozaar -) [address] [facility] Last Admin: 10/27/17 10:04 Dose: 50 mg Metoprolol Succinate (Toprol Xl -) [address] [facility] Last Admin: 10/27/17 10:04 Dose: 50 mg Montelukast Sodium (Singulair -) [address] [facility] Pantoprazole Sodium (Protonix -) [address] [facility] Last Admin: 10/27/17 10:04 Dose: 40 mg Prednisone (Deltasone -) [address] [facility] - Objective Vital Signs: Vital Signs Temperature 37.2 C 10/27/17 09:00 Pulse Rate 92 H 10/27/17 11:20 Respiratory Rate 18 10/27/17 09:00 Blood Pressure 147/74 10/27/17 09:00 O2 Sat by Pulse Oximetry (%) 95 10/27/17 11:20 Constitutional: Yes: Well Nourished, No Distress, Calm Cardiovascular: Yes: Regular Rate and Rhythm. No: Gallop, Murmur, Rub Respiratory: Yes: Regular, CTA Bilaterally. No: Rales, Rhonchi, Wheezes Gastrointestinal: Yes: Normal Bowel Sounds, Soft. No: Distention, Tenderness Extremities: Yes: WNL Edema: No Labs: CBC, BMP 10/27/17 04:00 10/27/17 04:00 Problem List - Problems (1) Asthma exacerbation Code(s): J45.901 - UNSPECIFIED ASTHMA WITH (ACUTE) EXACERBATION Qualifiers: Asthma severity: mild Asthma persistence: persistent Qualified Code(s): J45.31 - Mild persistent asthma with (acute) exacerbation (2) Hypertension Code(s): I10 - ESSENTIAL (PRIMARY) HYPERTENSION (3) GERD (gastroesophageal reflux disease) Code(s): K21.9 - GASTRO-ESOPHAGEAL REFLUX DISEASE WITHOUT ESOPHAGITIS Assessment/Plan - Problems (1) Asthma exacerbation Assessment/Plan: -patient says feeling worse but looks improved -appreciate pulmonary note -changed to prednisone 20mg daily -plan to discharge in am Code(s): J45.901 - UNSPECIFIED ASTHMA WITH (ACUTE) EXACERBATION Qualifiers: Asthma severity: mild Asthma persistence: persistent Qualified Code(s): J45.31 - Mild persistent asthma with (acute) exacerbation (2) Hypertension Assessment/Plan: -controlled -continue home regimen Code(s): I10 - ESSENTIAL (PRIMARY) HYPERTENSION (3) GERD (gastroesophageal reflux disease) Assessment/Plan: -continue protonix Code(s): K21.9 - GASTRO-ESOPHAGEAL REFLUX DISEASE WITHOUT ESOPHAGITIS
[2017-10-27] MEDS ORDERED: SODIUM CHLORIDE NASAL SPRAY 44 ML BOTTLE NS PRN (13:59)
[2017-10-27] MEDS ORDERED: PT OWN MED DRAWER 7, Y5N ONE ×2 (15:06→21:47)
[2017-10-27] MEDS: predniSONE 20 MG TABLET (UD) PO SCH (15:08)
[2017-10-27] MEDS ORDERED: MONTELUKAST NA 5 MG TAB.CHEW PO SCH (22:00)
[2017-10-28] MEDS: ALBUTEROL SO4 2.5/IPRATROPIUM 0.5 INH SOL 3 ML VIAL.NEB. NEB SCH ×2 (06:29→11:38)
[2017-10-28 08:07] LABS: BASO % 0.1 % (0-2.0); HEMATOCRIT 42.2 % (35.4-49); HEMOGLOBIN 13.8 GM/dL (11.7-16.9); LYMPH % 15.2 % (8-40); MCH 26.4 pg (25.7-33.7); MCHC 32.8 g/dl (32.0-35.9); MEAN CELL VOLUME 80.5 fl (80-96); MEAN PLT VOLUME 8.1 fl (7.5-11.1); MONO % 8.1 % (3.8-10.2); NEUT % 76.6 % (42.8-82.8); PLATELET COUNT 240 K/MM3 (134-434); RBC 5.24 M/mm3 (4.00-5.60); RDW 14.3 % (11.9-15.9); WHITE BLOOD COUNT 11.6 K/mm3 (4.0-10.0)
[2017-10-28 08:19] LABS: ANION GAP 7 (8-16); BLOOD UREA NITROGEN 22 mg/dL (7-18); CALCIUM 8.7 mg/dL (8.5-10.1); CHLORIDE 100 mmol/L (98-107); CO2 29 mmol/L (21-32); GLUCOSE,RANDOM 95 mg/dL (74-106); MAGNESIUM 2.6 mg/dL (1.8-2.4); PHOSPHOROUS 3.9 mg/dL (2.5-4.9); POTASSIUM 4.3 mmol/L (3.5-5.1); SODIUM 136 mmol/L (136-145)
[2017-10-28] MEDS ORDERED: PT OWN MED DRAWER 7, Y5N ONE (09:37)
[2017-10-28] MEDS: METOPROLOL SUCCINATE 25 MG TAB.SR.24H (FP) PO SCH (09:38)
[2017-10-28] MEDS: PANTOPRAZOLE 40 MG TABLET (FP) PO SCH (09:38)
[2017-10-28] MEDS: LOSARTAN POTASSIUM 50 MG TABLET (FP) PO SCH (09:38)
[2017-10-28] MEDS: HYDROCHLOROTHIAZIDE 12.5 MG CAPSULE (FP) PO SCH (09:38)
[2017-10-28] MEDS: predniSONE 20 MG TABLET (UD) PO SCH (09:38)
[2017-10-28] MEDS: amLODIPine BESYLATE 10 MG TABLET (FP) PO SCH (09:38)
[2017-10-28] MEDS: AZITHROMYCIN IVPB 250 MG in DEXTROSE 5%-WATER - 250 ML IVPB SCH (09:38)
[2017-10-28 09:44] VITALS: BP 138/76; PULSE 73; TEMP 98.5
--- NOTE | 2017-10-28 10:04 | DS ---
Physical Examination Vital Signs: Vital Signs Temperature 36.9 C 10/28/17 09:42 Pulse Rate 73 10/28/17 09:42 Respiratory Rate 18 10/28/17 09:42 Blood Pressure 138/76 10/28/17 09:42 O2 Sat by Pulse Oximetry (%) 96 10/27/17 21:00 Constitutional: Yes: Well Nourished, No Distress, Calm Cardiovascular: Yes: Regular Rate and Rhythm. No: Gallop, Murmur, Rub Respiratory: Yes: Regular, CTA Bilaterally. No: Rales, Rhonchi, Wheezes Gastrointestinal: Yes: Normal Bowel Sounds, Soft. No: Distention, Tenderness Extremities: Yes: WNL Labs: CBC, BMP 10/28/17 07:15 10/28/17 07:15 Discharge Summary Reason For Visit: EXACERBATION OF ASTHMA Current Active Problems Asthma exacerbation (Acute) Asthmatic bronchitis (Acute) VSD (ventricular septal defect) (Acute) Hospital Course: (1) Asthma exacerbation Code(s): J45.901 - UNSPECIFIED ASTHMA WITH (ACUTE) EXACERBATION Qualifiers: Asthma severity: mild Asthma persistence: persistent Qualified Code(s): J45.31 - Mild persistent asthma with (acute) exacerbation (2) Hypertension Code(s): I10 - ESSENTIAL (PRIMARY) HYPERTENSION (3) GERD (gastroesophageal reflux disease) Code(s): K21.9 - GASTRO-ESOPHAGEAL REFLUX DISEASE WITHOUT ESOPHAGITIS Mr Ibrahim is a 32 year old male who comes in with asthma exacerbation that failed outpatient therapy. He was admitted an started on duonebs, singulair, and IV solumedrol. He did not require oxygen while here. He improved on this course and was seen by pulmonary medicine. Insole Stiffener transitioned him to low dose prednisone and he continued to improve. He is now doing well with clear lung exam. He is safe for discharge home with steroid taper since he was on steroids as an outpatient. 33 minutes spent in preparation of this discharge Condition: Good - Instructions Diet, Activity, Other Instructions: resume previous diet and activity. Please follow up with Dr Espinal within 7 days. Referrals: Norbert Espinal MD [Primary Care Provider] - Disposition: HOME - Home Medications Comprehensive Discharge Medication List: Ambulatory Orders Amlodipine Besylate 10 mg PO DAILY 06/16/16 Metoprolol Succinate [Toprol XL -] 50 mg PO BID 06/16/16 Losartan 50Mg/Hctz 12.5MG [Hyzaar -] 1 tab PO DAILY 09/03/16 Pantoprazole Sodium 40 mg PO DAILY 10/25/17 Albuterol Sulfate Inhaler - [Ventolin HFA Inhaler -] 1 - 2 inh PO QID PRN #1 inhaler 10/28/17 Montelukast Na [Singulair -] 10 mg PO HS #30 tab.chew 10/28/17 Prednisone 5 mg PO ASDIR #14 tablet 10/28/17
[2017-10-28] MEDS ORDERED: MONTELUKAST NA 10 MG TABLET PO SCH (22:00)
== END 2017-10-28 11:54 | disposition home or self-care (01) | DRG 202 ==
LOC: JER 16:47 → JERBED 19:10 → J5S 10-26 00:25 → OBSVTOIN 10-26 12:37
PROVIDERS: ADMIT Internal Medicine; ATTEND Specialist
DX: J45.31 Mild persistent asthma with (acute) exacerbation (principal); Q21.0 Ventricular septal defect; I10 Essential (primary) hypertension; K21.9 Gastro-esophageal reflux disease without esophagitis
CPT/HCPCS: 36415; 71020-TC; 80048; 80053; 82550; 83735; 84100; 84484; 85025; 90688; 93005; 93010; 94150; 94640; 99284-25; G0008; G0378

== ENCOUNTER 2018-12-08 09:15 | Emergency (ER) | payer BC ==
[2018-12-08 09:25] VITALS: TEMP 98.6; BMI 33.3
--- NOTE | 2018-12-08 09:35 | PDOC ---
History of Present Illness - General History Source: Patient Exam Limitations: No Limitations - History of Present Illness Initial Comments: 12/08/18 09:42 The patient is a 33 year old male with a past medical history of HTN here today for evaluation of nausea and general weakness. The patient reports that he woke up this morning feeling nauseous and weak. He notes that he went to work and felt worse. The patient reports that he checked his blood pressure and reports that is was 210/100. He also notes numbness in his left cheek. The patient notes that he has had these exact symptoms in the past when his blood pressure has been high. Patient denies headache, lightheadedness. Denies fever, chills. Denies chest pain, shortness of breath. Denies vomiting, diarrhea, abdominal pain. Allergies: latex, levofloxacin PCP: none reported <Alex Motta - Last Filed: 12/08/18 09:42> <Howard Payne - Last Filed: 12/08/18 14:21> - General Chief Complaint: Nausea Stated Complaint: BLOOD PRESSURE PROBLEM Time Seen by Provider: 12/08/18 09:34 Past History <Alex Motta - Last Filed: 12/08/18 09:42> - Past Medical History Anemia: No Asthma: Yes Cancer: No Cardiac Disorders: Yes (VSD) CVA: No COPD: No CHF: No Dementia: No Diabetes: No GI Disorders: Yes (HIRSCHSPRUNG'S DISEASE) Disorders: No HTN: Yes Liver Disease: No Psychiatric Problems: Yes (depression) Seizures: No Thyroid Disease: No - Surgical History Abdominal Surgery: Yes (COLOSTOMY WITH REVERSAL AT AGE 7) Appendectomy: No Cardiac Surgery: Yes (CARDIAC CATH,no stent) Cholecystectomy: No Lung Surgery: No Neurologic Surgery: No Orthopedic Surgery: No - Immunization History Td Vaccination: Yes TDAP Vaccination: No Immunization Up to Date: Yes - Suicide/Smoking/Psychosocial Hx Smoking Status: No Smoking History: Never smoked Have you smoked in the past 12 months: No Number of Cigarettes Smoked Daily: 0 Hx Alcohol Use: No Drug/Substance Use Hx: No Substance Use Type: None Hx Substance Use Treatment: No <Howard Payne - Last Filed: 12/08/18 14:21> - Past Medical History Allergies/Adverse Reactions: Allergies Allergy/AdvReac Type Severity Reaction Status Date / Time latex Allergy Swelling Verified 12/08/18 09:38 levofloxacin [From Levaquin] Allergy Verified 12/08/18 09:38 Home Medications: Ambulatory Orders Amlodipine Besylate 10 mg PO DAILY 06/16/16 Metoprolol Succinate [Toprol XL -] 50 mg PO BID 06/16/16 Review of Systems - Review of Systems Able to Perform ROS?: Yes Comments:: 12/08/18 09:43 A complete review of 10 out of 10 review of systems is taken and is negative apart from what is previously mentioned below and in the HPI. <Alex Motta - Last Filed: 12/08/18 09:42> *Physical Exam - Vital Signs Last Vital Signs Temp Pulse Resp BP Pulse Ox 98.6 F 107 H 18 151/103 H 100 12/08/18 09:21 12/08/18 09:21 12/08/18 09:21 12/08/18 09:21 12/08/18 09:21 - Physical Exam Comments: 12/08/18 09:43 Vitals: Triage vital signs reviewed General Appearance: No acute distress, well nourished, well developed Head: Atraumatic Chest Wall: Nontender Cardiac: Regular rate and rhythm, no murmurs, no rubs, no gallops Lungs: Clear to auscultation bilateral, good air movement bilaterally Extremities: Full range of motion to all extremities, no cyanosis, clubbing, or edema Skin: Warm and dry, no rashes or lesions, no rash, no petechiae Neuro: AOX3; Cranial Nerves 2-12 grossly intact, Strength intact to all extremities, Sensation intact to all extremities Psych: Normal mood, normal affect <Alex Motta - Last Filed: 12/08/18 09:42> - Vital Signs Last Vital Signs Temp Pulse Resp BP Pulse Ox 98.6 F 107 H 18 151/103 H 100 12/08/18 09:21 12/08/18 09:21 12/08/18 09:21 12/08/18 09:21 12/08/18 09:21 <Howard Payne - Last Filed: 12/08/18 14:21> Moderate Sedation - Procedure Monitoring Vital Signs: Procedure Monitoring Vital Signs Temperature 98.6 F 12/08/18 09:21 Pulse Rate 107 H 12/08/18 09:21 Respiratory Rate 18 12/08/18 09:21 Blood Pressure 151/103 H 12/08/18 09:21 O2 Sat by Pulse Oximetry (%) 100 12/08/18 09:21 <Alex Motta - Last Filed: 12/08/18 09:42> - Procedure Monitoring Vital Signs: Procedure Monitoring Vital Signs Temperature 98.6 F 12/08/18 09:21 Pulse Rate 107 H 12/08/18 09:21 Respiratory Rate 18 12/08/18 09:21 Blood Pressure 151/103 H 12/08/18 09:21 O2 Sat by Pulse Oximetry (%) 100 12/08/18 09:21 <Howard Payne - Last Filed: 12/08/18 14:21> Heart Score/ECG Review - History History: Slightly suspicious - Electrocardiogram EKG: Normal - Age Age: </= 47 - Risk Factors Risk Factors Heart Score: Yes Hx Hypertension Based on the list above the patient has:: 1-2 risk factors - Troponin Troponin: </= normal limit - Score Heart Score - Total: 1 - ECG Impressions Comment:: 12/08/18 14:[address] elevations noted T-wave inversions Interpreted by me. <Howard Payne - Last Filed: 12/08/18 14:21> ED Treatment Course - LABORATORY CBC & Chemistry Diagram: 12/08/18 09:46 12/08/18 09:46 <Howard Payne - Last Filed: 12/08/18 14:21> Medical Decision Making - Medical Decision Making 12/08/18 09:42 The patient is a 33 year old male with a past medical history of HTN here today for evaluation of nausea and general weakness. <Alex Motta - Last Filed: 12/08/18 09:42> - Medical Decision Making 33 years old with past medical history significant for hypertension on medication presents to the ED with generalized weakness and nausea patient states he feels like this often when his blood pressure is elevated. They checked his blood pressure work it was greater than 200 systolic and he presented to the emergency department Upon arrival to the emergency department patient's blood pressure was 148 and he was feeling much better denies any headache weakness numbness chest pain shortness of breath An EKG was performed which demonstrated normal sinus rhythm with no ST elevations noted T-wave inversions Laboratory analysis was performed which demonstrated no significant abnormalities aside from a random glucose of 138 which patient was advised to follow-up with his primary care provider with and a calcium of 8.3. His troponin was negative his heart score is 1 His CAT scan demonstrated no acute abnormalities he feels much better he will go home and rest and follow up with his primary care doctor on Tuesday he will return to the emergency department for any severe worsening symptoms or for any concerns. <Howard Pyane - Last Filed: 12/08/18 14:21> *DC/Admit/Observation/Transfer - Attestations Scribe Attestion: 12/08/18 09:43 Documentation prepared by SESAR Norris, acting as medical accounting clerk for Howard Payne MD. <Alex Motta - Last Filed: 12/08/18 09:42> - Discharge Dispostion Decision to Admit order: No <Howard Payne - Last Filed: 12/08/18 14:21> Diagnosis at time of Disposition: Hypertension Qualifiers: Hypertension type: unspecified Qualified Code(s): I10 - Essential (primary) hypertension - Discharge Dispostion Disposition: HOME Condition at time of disposition: Good - Referrals Referrals: Norbert Espinal MD [Primary Care Provider] - - Patient Instructions Printed Discharge Instructions: Hypertension (Alternative Therapy) Additional Instructions: Take all home medications as prescribed. Follow-up with your primary care provider on Tuesday. Return to the emergency department for any severe returning or worsening symptoms or for any concerns.
[2018-12-08] MEDS ORDERED: ONDANSETRON 4 MG/2 ML VIAL IVPUSH ONE (09:40)
[2018-12-08] MEDS ORDERED: SODIUM CHLORIDE 0.9% 1000 ML INFUS.BAG IV ONE (09:40)
[2018-12-08] MEDS ORDERED: ONDANSETRON 4 MG/2 ML VIAL ONE (09:53)
[2018-12-08 10:22] LABS: BASO % 0.4 % (0-2.0); EOS % 1.3 % (0-4.5); HEMATOCRIT 39.4 % (35.4-49); HEMOGLOBIN 13.6 GM/dL (11.7-16.9); LYMPH % 21.4 % (8-40); MCH 27.6 pg (25.7-33.7); MCHC 34.6 g/dl (32.0-35.9); MEAN CELL VOLUME 79.8 fl (80-96); MEAN PLT VOLUME 8.1 fl (7.5-11.1); MONO % 6.4 % (3.8-10.2); NEUT % 70.5 % (42.8-82.8); PLATELET COUNT 165 K/MM3 (134-434); RBC 4.94 M/mm3 (4.00-5.60); RDW 14.4 % (11.9-15.9); WHITE BLOOD COUNT 4.1 K/mm3 (4.0-10.0)
[2018-12-08 10:42] LABS: ALBUMIN 3.8 g/dl (3.4-5.0); ALK PHOS 64 U/L (45-117); ANION GAP 8 MMOL/L (8-16); BILIRUBIN,TOTAL 0.6 mg/dL (0.2-1); BLOOD UREA NITROGEN 14 mg/dL (7-18); CALCIUM 8.3 mg/dL (8.5-10.1); CHLORIDE 107 mmol/L (98-107); CO2 25 mmol/L (21-32); CREATININE 1.1 mg/dL (0.55-1.3); GLUCOSE,RANDOM 138 mg/dL (74-106); POTASSIUM 3.7 mmol/L (3.5-5.1); SGOT/AST 18 U/L (15-37); SGPT/ALT 12 U/L (13-61); SODIUM 140 mmol/L (136-145); TOT PROT 7.2 g/dl (6.4-8.2)
[2018-12-08 11:54] VITALS: BP 133/87; PULSE 73
--- NOTE | 2018-12-09 13:18 | EKG ---
Test Reason : Blood Pressure : / mmHG Vent. Rate : 093 BPM Atrial Rate : 093 BPM P-R Int : 132 ms QRS Dur : 106 ms QT Int : 346 ms P-R-T Axes : 044 016 065 degrees QTc Int : 430 ms NORMAL SINUS RHYTHM NORMAL ECG WHEN COMPARED WITH ECG OF 27-OCT-2017 03:45, NONSPECIFIC T WAVE ABNORMALITY NOW EVIDENT IN LATERAL LEADS Confirmed by CHICO GURROLA MD ([id number]) on 12/09/2018 1:17:49 PM Referred By: Confirmed By:CHICO GURROLA MD
== END 2018-12-08 11:53 | disposition home or self-care (01) ==
LOC: JER 09:15
PROC: 3E033GC Introduction of Other Therapeutic Substance into Peripheral Vein, Percutaneous Approach (ICD-10-PCS; principal; 2018-12-08)
DX: I10 Essential (primary) hypertension (principal); Z98.61 Coronary angioplasty status; Q43.1 Hirschsprung's disease; F32.9 Major depressive disorder, single episode, unspecified; Z87.09 Personal history of other diseases of the respiratory system
CPT/HCPCS: 36415; 70450-TC; 80053; 84484; 85025; 93005; 93010; 99284-25; J7030

== ENCOUNTER 2019-06-26 17:40 | Inpatient (IN) | payer BC ==
--- NOTE | 2019-06-26 18:08 | HP ---
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 We tried everyavailable test as an outpatient including EEG blood work which revealed no evidence of myopathy. Patient with chronic low back pain. Patient was admitted today for 16 channel video EEG monitoring to rule out partial seizure. 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 History of Recent Travel: No Home Medications - Allergies Allergies/Adverse Reactions: Allergies Allergy/AdvReac Type Severity Reaction Status Date / Time latex Allergy Swelling Verified 12/08/18 09:38 levofloxacin [From Levaquin] Allergy Verified 12/08/18 09:38 - Home Medications Home Medications: Ambulatory Orders Amlodipine Besylate 10 mg PO DAILY 06/16/16 Metoprolol Succinate [Toprol XL -] 50 mg PO BID 06/16/16 Family Disease History - Family Disease History Family History: Unremarkable Family Disease History: Other: Mother Review of Systems - Review of Systems Constitutional: reports: No Symptoms Eyes: reports: No Symptoms Neurological: reports: Headache, Incoordination Physical Examination Constitutional: Yes: Well Nourished Eyes: Yes: WNL HENT: Yes: WNL Neurological: Yes: Alert, Oriented, Babinski negative ...Motor Strength: WNL Imaging - Results Cat Scan: Image Reviewed Problem List - Problems (1) Blunt head injury Assessment/Plan: EEG monitoring. 2. Seizure precaution. 3. Blood work. 4. DVT prophylaxis Code(s): S09.8XXA - OTHER SPECIFIED INJURIES OF HEAD, INITIAL ENCOUNTER
[2019-06-26 19:01] VITALS: BMI 32.3
[2019-06-26 20:25] LABS: HEMATOCRIT 41.9 % (35.4-49); HEMOGLOBIN 14.1 GM/dL (11.7-16.9); MCH 26.9 pg (25.7-33.7); MCHC 33.6 g/dl (32.0-35.9); MEAN CELL VOLUME 80.1 fl (80-96); PLATELET COUNT 236 K/MM3 (134-434); RBC 5.23 M/mm3 (4.00-5.60); RDW 13.9 % (11.9-15.9)
[2019-06-26 20:48] LABS: ALBUMIN 4.2 g/dl (3.4-5.0); BILIRUBIN,DIRECT 0.1 mg/dL (0.0-0.2); BILIRUBIN,TOTAL 0.3 mg/dL (0.2-1); BLOOD UREA NITROGEN 9.2 mg/dL (7-18); CALCIUM 9.3 mg/dL (8.5-10.1); POTASSIUM 4.2 mmol/L (3.5-5.1); TOT PROT 8.2 g/dl (6.4-8.2)
[2019-06-26] MEDS ORDERED: ACETAMINOPHEN 325 MG TABLET (FP) PO PRN (21:17)
[2019-06-27] MEDS: amLODIPine BESYLATE 10 MG TABLET (FP) PO SCH (10:27)
--- NOTE | 2019-06-27 10:50 | EKG ---
Test Reason : Blood Pressure : / mmHG Vent. Rate : 078 BPM Atrial Rate : 078 BPM P-R Int : 138 ms QRS Dur : 102 ms QT Int : 360 ms P-R-T Axes : 030 020 038 degrees QTc Int : 410 ms NORMAL SINUS RHYTHM NORMAL ECG WHEN COMPARED WITH ECG OF 08-DEC-2018 09:25, NO SIGNIFICANT CHANGE WAS FOUND Confirmed by STEVO OROZCO MD ([id number]) on 06/27/2019 10:49:43 AM Referred By: Confirmed By:STEVO OROZCO MD
[2019-06-27] MEDS: ALPRAZolam 0.25 MG TABLET PO SCH (21:30)
[2019-06-28] MEDS: amLODIPine BESYLATE 10 MG TABLET (FP) PO SCH (09:12)
[2019-06-28] MEDS: ALPRAZolam 0.25 MG TABLET PO SCH (11:58)
--- NOTE | 2019-06-28 18:08 | PN ---
Progress Note, Physician History of Present Illness: events note d Chart reviewed Alert Awak e No seziure Still shaking inside No electric correwlate - Current Medication List Current Medications: Active Medications Acetaminophen (Tylenol -) 650 mg PO Q4H PRN PRN Reason: PAIN Alprazolam (Xanax -) 1 mg PO DAILY [facility] Last Admin: 06/28/19 11:58 Dose: 1 mg Amlodipine Besylate (Norvasc -) 10 mg PO DAILY [facility] Last Admin: 06/28/19 09:12 Dose: 10 mg Bupropion HCl (Wellbutrin Xl -) 150 mg PO DAILY [facility] Last Admin: 06/28/19 09:12 Dose: 150 mg Metoprolol Succinate (Toprol Xl -) 50 mg PO BID [facility] Last Admin: 06/28/19 09:12 Dose: 50 mg - Objective Vital Signs: Vital Signs Temperature 98.3 F 06/28/19 15:22 Pulse Rate 76 06/28/19 15:22 Respiratory Rate 18 06/28/19 15:22 Blood Pressure 131/74 06/28/19 15:22 O2 Sat by Pulse Oximetry (%) 99 06/28/19 10:00 Constitutional: Yes: Well Nourished Eyes: Yes: WNL HENT: Yes: WNL Neurological: Yes: Alert, Oriented, Babinski negative ...Motor Strength: WNL Labs: CBC, BMP 06/26/19 19:35 06/26/19 19:35 Problem List - Problems (1) Blunt head injury Assessment/Plan: 1. DC VEEG 06/29 2. No AED Code(s): S09.8XXA - OTHER SPECIFIED INJURIES OF HEAD, INITIAL ENCOUNTER
[2019-06-29 09:16] VITALS: BP 126/84; PULSE 67; TEMP 98.2
--- NOTE | 2019-06-29 09:16 | PN ---
Progress Note, Physician History of Present Illness: no seizure activity No events overnight Slept well No sleep paralysis - Current Medication List Current Medications: Active Medications Acetaminophen (Tylenol -) 650 mg PO Q4H PRN PRN Reason: PAIN Alprazolam (Xanax -) 1 mg PO DAILY [facility] Last Admin: 06/28/19 11:58 Dose: 1 mg Amlodipine Besylate (Norvasc -) 10 mg PO DAILY [facility] Last Admin: 06/28/19 09:12 Dose: 10 mg Bupropion HCl (Wellbutrin Xl -) 150 mg PO DAILY [facility] Last Admin: 06/28/19 09:12 Dose: 150 mg Metoprolol Succinate (Toprol Xl -) 50 mg PO BID [facility] Last Admin: 06/28/19 21:07 Dose: 50 mg - Objective Vital Signs: Vital Signs Temperature 98.3 F 06/29/19 05:59 Pulse Rate 64 06/29/19 05:59 Respiratory Rate 18 06/29/19 05:59 Blood Pressure 106/69 06/29/19 05:59 O2 Sat by Pulse Oximetry (%) 99 06/28/19 21:00 Constitutional: Yes: Well Nourished Eyes: Yes: WNL Neurological: Yes: Alert, Oriented, Babinski negative ...Motor Strength: WNL Labs: CBC, BMP 06/26/19 19:35 06/26/19 19:35 Problem List - Problems (1) Blunt head injury Assessment/Plan: 1. continue CPAP machine. 2. Continue the psych medication. 3. Known seizure medication. 4. Discharge home today Code(s): S09.8XXA - OTHER SPECIFIED INJURIES OF HEAD, INITIAL ENCOUNTER
[2019-06-29] MEDS: amLODIPine BESYLATE 10 MG TABLET (FP) PO SCH (10:26)
[2019-06-29] MEDS: ALPRAZolam 0.25 MG TABLET PO SCH (12:30)
== END 2019-06-29 14:38 | disposition home or self-care (01) | DRG 93 ==
LOC: J4S 17:40
PROVIDERS: ADMIT Psychiatry & Neurology Neurology; ATTEND Psychiatry & Neurology Neurology
PROC: 4A10X4Z Monitoring of Central Nervous Electrical Activity, External Approach (ICD-10-PCS; principal; 2019-06-26)
DX: R20.2 Paresthesia of skin (principal); I10 Essential (primary) hypertension; M54.5 Low back pain
CPT/HCPCS: 36415; 80048; 80076; 85027; 93005; 93010; 95951

== ENCOUNTER 2021-09-16 17:01 | Emergency (ER) | payer OTHER, BC ==
[2021-09-16 17:24] VITALS: BP 119/81; PULSE 73; TEMP 99.2; BMI 29.1
== END 2021-09-16 18:43 | disposition home or self-care (01) ==
LOC: FER 17:01
DX: M79.644 Pain in right finger(s) (principal); M79.671 Pain in right foot
CPT/HCPCS: 73630-TC-RT-FY; 99284-25

== ENCOUNTER 2024-03-12 04:33 | Day surgery (SDC) | payer BC ==
[2024-03-09 09:23] VITALS: BMI 30.7
[2024-03-12] MEDS ORDERED: MIDAZOLAM HCL 2 MG/2 ML SINGLE DOSE VIAL ONE (09:16)
[2024-03-12 10:07] VITALS: TEMP 97.3
[2024-03-12 10:29] VITALS: PULSE 84
[2024-03-12 10:58] VITALS: BP 125/88; RESP 16
== END 2024-03-12 11:12 | disposition home or self-care (01) ==
LOC: JASU-ENDO 04:33
PROVIDERS: ATTEND Internal Medicine Gastroenterology
PROC: 0DB68ZX Excision of Stomach, Via Natural or Artificial Opening Endoscopic, Diagnostic (ICD-10-PCS; 2024-03-12)
PROC: 0DBB8ZX Excision of Ileum, Via Natural or Artificial Opening Endoscopic, Diagnostic (ICD-10-PCS; 2024-03-12)
PROC: 0DBP8ZX Excision of Rectum, Via Natural or Artificial Opening Endoscopic, Diagnostic (ICD-10-PCS; 2024-03-12)
PROC: 0DB98ZX Excision of Duodenum, Via Natural or Artificial Opening Endoscopic, Diagnostic (ICD-10-PCS; principal; 2024-03-12 10:00)
DX: Z12.11 Encounter for screening for malignant neoplasm of colon (principal); K64.8 Other hemorrhoids; Z98.0 Intestinal bypass and anastomosis status; K29.50 Unspecified chronic gastritis without bleeding; K21.9 Gastro-esophageal reflux disease without esophagitis
CPT/HCPCS: 88305-TC; 88342-TC